=== PATIENT | female | born 1990 | race African-American/Black ===

== ENCOUNTER 2023-08-24 06:20 | Inpatient (IN) | payer OTHER ==
[2023-08-24] MEDS: ELECTROLYTE-148 SOLN 500 ML IV SCH ×2 (06:45→07:20)
[2023-08-24] MEDS: CITRIC ACID/SODIUM CITRATE 30 ML UNIT-DOSE CUP PO ONE (07:10)
[2023-08-24 07:37] VITALS: BMI 39.8
[2023-08-24] MEDS ORDERED: FENTANYL CITRATE/PF 50 MCG/ML VIAL ONE (08:04)
[2023-08-24] MEDS ORDERED: KETOROLAC TROMETHAMINE 30 MG/1 ML VIAL ONE (08:04)
[2023-08-24] MEDS ORDERED: OXYTOCIN 10 UNITS/ML VIAL ONE (08:04)
[2023-08-24] MEDS ORDERED: PHENYLEPHRINE HCL 10 MG/1 ML SINGLE DOSE VIAL ONE (08:04)
[2023-08-24] MEDS ORDERED: morphine SULFATE/PF 1 MG/2 ML (2cc Syringe - QUVA) ONE (08:04)
[2023-08-24] MEDS ORDERED: ONDANSETRON 4 MG/2 ML VIAL ONE (08:04)
[2023-08-24] MEDS ORDERED: ceFAZolin SODIUM 1 GM VIAL ONE (08:05)
[2023-08-24] MEDS ORDERED: ELECTROLYTE-148 SOLN 1,000 ML IV SCH (08:15)
[2023-08-24] MEDS ORDERED: OXYTOCIN 20 UNITS in 0.9% NS 20 UNIT/1,000 ML INFUS.BAG IV ONE (09:49)
[2023-08-24] MEDS ORDERED: ACETAMINOPHEN 325 MG TABLET (FP) PO PRN (09:50)
[2023-08-24] MEDS ORDERED: METHYLERGONOVINE MALEATE 0.2 MG/1 ML AMP IM PRN (09:50)
[2023-08-24] MEDS ORDERED: SENNOSIDES/DOCUSATE COMBO (SENNA PLUS) TABLET (UD) PO PRN (09:50)
[2023-08-24] MEDS: OXYTOCIN 20 UNITS in 0.9% NS 20 UNIT/1,000 ML INFUS.BAG IV SCH (09:50)
[2023-08-24] MEDS ORDERED: ONDANSETRON 4 MG/2 ML VIAL IVPUSH PRN (10:58)
[2023-08-24] MEDS ORDERED: oxyCODONE HCL 5 MG TABLET PO PRN ×2 (21:51)
[2023-08-24] MEDS: ACETAMINOPHEN 1000 MG/100 ML BAG IVPB PRN (23:29)
[2023-08-25] MEDS: SIMETHICONE 80 MG TAB.CHEW (FP) PO PRN (05:22)
[2023-08-25] MEDS: IBUPROFEN 600 MG TABLET (FP) PO PRN (05:22)
[2023-08-25 07:47] LABS: BASO % 0.2 % (0-2.0); EOS % 0.1 % (0-4.5); HEMATOCRIT 25.2 % (32.4-45.2); LYMPH % 13.5 % (8-40); MCH 23.6 pg (25.7-33.7); MEAN CELL VOLUME 73.7 fl (80-96); MEAN PLT VOLUME 8.3 fl (7.5-11.1); MONO % 7.9 % (3.8-10.2); NEUT % 78.3 % (42.8-82.8); PLATELET COUNT 250 10^3/uL (134-434); RBC 3.41 M/mm3 (3.60-5.2); RDW 16.6 % (11.6-15.6); WHITE BLOOD COUNT 12.2 K/mm3 (4.0-10.0)
[2023-08-25] MEDS ORDERED: BISACODYL 10 MG SUPP.RECT RC PRN (09:51)
[2023-08-25] MEDS: FERROUS SO4 325 MG TABLET (FP) PO SCH (09:57)
[2023-08-25] MEDS: PRENATAL VITAMINS W/ FOLIC ACID TABLET (FP) PO SCH (09:57)
[2023-08-25] MEDS ORDERED: IBUPROFEN 800 MG/8 ML IJ IVPB PRN (10:00)
[2023-08-25] MEDS: FLU VACCINE (FLULAVAL) PF 60 MCG/0.5 ML SYRINGE 2023-2024 IM ONE (11:30)
[2023-08-26 22:28] VITALS: RESP 18
[2023-08-27 09:14] VITALS: BP 102/64; PULSE 97; TEMP 98.1
== END 2023-08-27 14:02 | disposition home or self-care (01) | DRG 540 ==
LOC: JLDR 06:20 → J3W 12:10
PROVIDERS: ADMIT Obstetrics & Gynecology; ATTEND Obstetrics & Gynecology
PROC: 10D00Z1 Extraction of Products of Conception, Low, Open Approach (ICD-10-PCS; principal; 2023-08-24)
DX: O34.211 Maternal care for low transverse scar from previous cesarean delivery (principal); Z3A.39 39 weeks gestation of pregnancy; Z37.0 Single live birth
CPT/HCPCS: 36415; 80053; 85025; 85610; 85730; 86780; 86850; 86900; 86901; 87389; 88307-TC; 90686; 94010; J0131